=== PATIENT | female | born 1955 | race American Indian/Alaskan Native ===

== ENCOUNTER 2017-06-18 09:06 | Outpatient (CLI) | payer OTHER ==
--- NOTE | 2017-06-18 11:43 | Ultrasound Report ---
COMPLETE ABDOMINAL ULTRASOUND: 06/18/2017 CLINICAL INDICATION: Pain. TECHNIQUE: Real-time scanning was performed with used equipment sales representative static images obtained. FINDINGS: The liver measures 12.6 cm. Hepatic echotexture is normal. No intrahepatic biliary dilatation or focal parenchymal lesion is present. The common bile duct measures 4 mm. The gallbladder is normal, as is the pancreas. The right kidney measures 10.9 cm, and appears unremarkable. The left kidney measures 9.5 cm, and demonstrates an incidental 1 cm parapelvic cyst. The spleen measures 9.4 cm, and demonstrates normal echotexture. The abdominal aorta is normal in caliber. The inferior vena cava is unremarkable. No free fluid is present. IMPRESSION: NORMAL ABDOMINAL ULTRASOUND. JOB #: [id number] EXT JOB #: [id number]
== END 2017-06-18 09:07 | disposition home or self-care (01) ==
LOC: DI 09:06
PROVIDERS: ATTEND Registered Nurse
DX: R10.9 Unspecified abdominal pain (principal)
CPT/HCPCS: 76700

== ENCOUNTER 2017-06-23 10:17 | Outpatient (CLI) | payer OTHER ==
--- NOTE | 2017-06-23 12:33 | Ultrasound Report ---
PELVIC ULTRASOUND: 06/23/2017 CLINICAL INDICATION: Lower abdominal pain. TECHNIQUE: Transabdominal pelvic ultrasound performed for global evaluation. Transvaginal pelvic ultr asound performed for detailed evaluation. Real-time scanning performed and static images obtained. FINDINGS: The uterus is anteverted, measuring 6.0 x 4.1 x 2.4 cm. The endometrium measures 5 mm. An 1 cm calcified leiomyoma is noted in the right myometrium intramurally. The ovaries are normal, with the right measuring 2.0 x 0.8 x 0.8 cm, and the left measuring 1.3 x 0.7 x 0.7 cm. No free fluid is p resent. IMPRESSION: SMALL CALCIFIED LEIOMYOMA. JOB #: [id number] EXT JOB #:[id number]
== END 2017-06-23 10:18 | disposition home or self-care (01) ==
LOC: DI 10:17
PROVIDERS: ATTEND Registered Nurse
DX: D26.1 Other benign neoplasm of corpus uteri (principal)
CPT/HCPCS: 76830; 76856

== ENCOUNTER 2017-07-31 10:34 | Day surgery (SDC) | payer OTHER ==
[2017-07-31] MEDS ORDERED: LACTATED RINGERS 1,000 ML IV ONE (10:55)
[2017-07-31] MEDS ORDERED: MIDAZOLAM 2 MG/2 ML VIAL IVP ONE (12:00)
[2017-07-31] MEDS ORDERED: fentaNYL 100 MCG/2 ML VIAL IVP ONE (12:00)
--- NOTE | 2017-07-31 12:00 | HISTORY & PHYSICAL EXAMINATION ---
HPI - History of Present Illness HPI Comment/Other: Ptsyl is here for colonoscopy for hematochezia. Current Meds: DAILY VALUE MULTIVITAMIN ORAL TABS (MULTIPLE VITAMIN) Take one yablet by mouth daily Allergies: Past Medical History: Reviewed history from 09/25/2016 and no changes required: Very healthy Hyperlipidemia Hiatal Hernia Prednisone Use Past Surgical History: Reviewed history from 09/25/2016 and no changes required: Herniorophy Tonsilectomy Family History Summary: Reviewed history and no changes required: 06/17/2017 Father () - Has Family History of Heart Disease - Entered On: 06/17/2017 Social History: Reviewed history from 09/25/2016 and no changes required: Juanis Moved recently from [place] Enjoys V[employer] Systems Risk Factors: Smoked Tobacco Use: Former smoker Cigarettes: Yes Year quit: 1980 Years Since Last Quit: 37 Drug use: no Alcohol use: yes Type: wine Drinks per day: 2 Exercise: yes Times per week: daily Type of Exercise: swim, pilates, bicycling, paddling Physical Exam General: well developed, well nourished, in no acute distress Lungs: clear bilaterally to A & P Heart: regular rate and rhythm, S1, S2 without murmurs, rubs, gallops, or clicks Abdomen: bowel sounds positive; abdomen soft and non-tender without masses, organomegaly, or hernias noted. Bilateral inguinal incisional scars with no palpable hernia bilaterally Pulses: pulses normal in all 4 extremities Extremities: no clubbing, cyanosis, edema, or deformity noted with normal full range of motion of all joints Cervical Nodes: no significant adenopathy Psych: alert and cooperative; normal mood and affect; normal attention span and concentration Problems: Problems Added: 1) Dx of Hematochezia (AAR92-U67.1) (ICD-578.1) Impression & Recommendations: Problem # 1: hematochezia will proceed with colonoscopy. PMH/PSH - Past Medical History Cardiovascular: positive: None Respiratory: positive: None Endocrine/Autoimmune: positive: None GI: positive: None : positive: None HEENT: positive: None Psych: positive: None Musculoskeletal: positive: None Derm: positive: None MRSA Hx?: No - Past Surgical History HEENT: positive: Tonsil/Adenoidectomy Social & Family Hx - Social History ETOH Use: Wine Meds/Allgy - Home Medications Home Medications: Ambulatory Orders Medication Instructions Recorded Confirmed Multivitamin [Multiple Vitamins] 1 each PO DAILY 07/30/17 07/30/17 - Allergies Allergies/Adverse Reactions: Allergies Allergy/AdvReac Type Severity Reaction Status Date / Time No Known Drug Allergies Allergy Verified 07/30/17 14:44 Exam - Vital Signs Vital Signs: Vital Signs x48h Temp Pulse Resp BP Pulse Ox 07/31/17 10:38 36.2 C L 59 L 18 143/92 H 100
[2017-07-31 13:21] VITALS: BP 113/74
== END 2017-07-31 10:35 | disposition home or self-care (01) ==
LOC: SDS 10:34
PROVIDERS: ATTEND Surgery
PROC: 0DBE8ZX Excision of Large Intestine, Via Natural or Artificial Opening Endoscopic, Diagnostic (ICD-10-PCS; principal; 2017-07-31 11:45)
DX: K92.1 Melena (principal); K52.9 Noninfective gastroenteritis and colitis, unspecified; E78.5 Hyperlipidemia, unspecified; Z87.891 Personal history of nicotine dependence
CPT/HCPCS: 45380; J7120; 88305

== ENCOUNTER 2017-12-20 08:37 | Emergency (ER) | payer OTHER ==
--- NOTE | 2017-12-20 09:14 | ED Physician Documentation ---
PD HPI UPPER EXT INJURY - Stated complaint Stated Complaint: GLF/R SHOULDER INJ - Chief complaint Chief Complaint: Trauma Ext - History obtained from History obtained from: Patient - History of Present Illness Location: Right, Shoulder Type of injury: Fall Where injury occurred: Home Timing - onset: How many days ago (2) Timing - duration: Days (2) Timing - details: Abrupt onset, Still present Improved by: Rest, Ice, Immobilization Worsened by: Moving, Palpating Associated symptoms: No: Weakness, Numbness, Tingling, Swelling Contributing factors: No: Anticoagulated Similar symptoms before: Has not had sx before Recently seen: Not recently seen - Additonal information Additional information: 62-year-old female was training her dog she had the leash underneath her foot the dog ran it pulled her off of her feet and she landed on her right outstretched hand. Forces were transmitted into her shoulder and she has had pain in her shoulder since. She feels a step off at the end of her clavicle associated with this injury. She has mostly pain when she attempts to move her arm over her head. She also is having some issue with pain in her left ankle from a sprain that occurred about 1 month ago she continues to have symptoms is limping and would like an x-ray. Review of Systems Constitutional: denies: Fever Eyes: denies: Decreased vision Ears: denies: Ear pain Nose: denies: Congestion Throat: denies: Sore throat Cardiac: denies: Chest pain / pressure Respiratory: denies: Dyspnea, Cough GI: denies: Abdominal Pain, Nausea, Vomiting : denies: Dysuria Skin: denies: Rash Musculoskeletal: reports: Extremity pain, Joint pain, Pain with weight bearing. denies: Neck pain, Back pain Neurologic: denies: Generalized weakness, Focal weakness, Numbness PD PAST MEDICAL HISTORY - Past Medical History Past Medical History: Yes Cardiovascular: None Respiratory: None Neuro: None Endocrine/Autoimmune: None GI: Ulcerative colitis TRACK WATCHMAN: None : None HEENT: None Psych: None Musculoskeletal: None Derm: None - Past Surgical History Past Surgical History: Yes - Present Medications Home Medications: Ambulatory Orders Medication Instructions Recorded Confirmed Multivitamin [Multiple Vitamins] 1 each PO DAILY 07/30/17 07/30/17 - Allergies Allergies/Adverse Reactions: Allergies Allergy/AdvReac Type Severity Reaction Status Date / Time No Known Drug Allergies Allergy Verified 07/30/17 14:44 - Social History Does the pt smoke?: No Smoking Status: Never smoker Does the pt drink ETOH?: Yes ETOH Use: Wine Does the pt have substance abuse?: No PD ED PE NORMAL - Vitals Vital signs reviewed: Yes (normal ) - General General: Alert and oriented X 3, No acute distress, Well developed/nourished - HEENT HEENT: Atraumatic, PERRL, EOMI - Neck Neck: Supple, no meningeal sign - Respiratory Respiratory: No respiratory distress - Derm Derm: Normal color, Warm and dry, No rash - Extremities Extremities: No deformity, No edema, Other (There is point tenderness over the right A/C joint with minimal cosmetic deformity. The distal n/v is intact and the ROM is good with pain at extremes of ROM. The left ankle is examined and there is mild pain to palpation of the lateral malleolus. ) - Neuro Neuro: No motor deficit, No sensory deficit Eye Opening: Spontaneous Motor: Obeys Commands Verbal: Oriented GCS Score: 15 - Psych Psych: Normal mood, Normal affect Results - Vitals Vitals: Vital Signs - 24 hr 12/20/17 08:42 Temperature 36.2 C L Heart Rate 72 Respiratory 16 Rate O2 Saturation 98 Oxygen O2 Source Room air - Rads (name of study) ankle Radiology: Prelim report reviewed (Impression: 1. No osseous abnormality.), EMP read indepedently, See rad report shoulder Radiology: Prelim report reviewed (Impression: 1. No acute osseous abnormality. ), EMP read indepedently, See rad report PD MEDICAL DECISION MAKING - ED course Complexity details: reviewed old records, reviewed results, re-evaluated patient , considered differential, d/w patient ED course: 62-year-old female with a shoulder sprain and ankle sprain has negative x-rays this morning and treated conservatively per Departure - Departure Disposition: 01 Home, Self Care Clinical Impression: Shoulder sprain Qualifiers: Encounter type: initial encounter Shoulder sprain type: unspecified sprain Laterality: right Qualified Code(s): S43.401A - Unspecified sprain of right shoulder joint, initial encounter Ankle sprain Qualifiers: Encounter type: initial encounter Involved ligament of ankle: calcaneofibular ligament Laterality: left Qualified Code(s): S93.412A - Sprain of calcaneofibular ligament of left ankle, initial encounter Instructions: ED Sprain Ankle W X Ray, ED Sprain Shoulder Follow-Up: Luisana Valerio ARNP [Primary Care Provider] -
--- NOTE | 2017-12-20 10:13 | XRAY Preliminary Report ---
Exam: XR SHOULDER 3 VIEW RT IMPRESSION: 1. No acute osseous abnormality. [facility] SITE ID: [id number]
--- NOTE | 2017-12-20 10:13 | XRAY Report ---
EXAM: RIGHT SHOULDER RADIOGRAPHY EXAM DATE: 12/20/2017 09:59 AM. CLINICAL HISTORY: Fall shoulder pain deformity over A/C. COMPARISON: None. TECHNIQUE: 3 views. FINDINGS: Bones: No fractures or bone lesions. Bones appear osteopenic Joints: Mild acromioclavicular joint DJD. Glenohumeral joint appears preserved. Soft Tissues: Unremarkable. IMPRESSION: 1. No acute osseous abnormality. [facility] Referring Provider Line: [phone] SITE ID: [id number]
--- NOTE | 2017-12-20 10:14 | XRAY Preliminary Report ---
Exam: XR ANKLE 3 VIEW LT IMPRESSION: 1. No acute osseous abnormality. If there is clinical concern for radiographically occult fracture, consider immobilization with repea t radiograph in 7-10 days. [facility] SITE ID: [id number]
--- NOTE | 2017-12-20 10:15 | XRAY Report ---
EXAM: LEFT ANKLE RADIOGRAPHY EXAM DATE: 12/20/2017 09:57 AM. CLINICAL HISTORY: Sprain one month ago continued limping. . COMPARISON: None. TECHNIQUE: 3 views. FINDINGS: Bones: No fractures or bone lesions. Joints: Unremarkable. Soft Tissues: Unremarkable. IMPRESSION: 1. No acute osseous abnormality. If there is clinical concern for radiographically occult fracture, consider immobilization with repea t radiograph in 7-10 days. [facility] Referring Provider Line: [phone] SITE ID: [id number]
[2017-12-20 11:55] VITALS: BP 154/80
== END 2017-12-20 11:59 | disposition home or self-care (01) ==
LOC: ED 08:37
DX: S43.401A Unspecified sprain of right shoulder joint, initial encounter (principal); W01.0XXA Fall on same level from slipping, tripping and stumbling without subsequent striking against object, initial encounter; Y93.K1 Activity, walking an animal; Y92.019 Unspecified place in single-family (private) house as the place of occurrence of the external cause; S93.412A Sprain of calcaneofibular ligament of left ankle, initial encounter
CPT/HCPCS: 99283

== ENCOUNTER 2019-03-17 09:58 | Outpatient (CLI) | payer OTHER ==
--- NOTE | 2019-03-17 11:21 | Mammography Report ---
Reason: SCREENING MAMMO Procedure Date: 03/17/2019 Accession Number: [id number] / [id number] Procedure: ANGEL - Screening Mammo w/Vaibhav CPT Code: FULL RESULT: EXAM: Screening Mammo w/Vaibhav DATE: 03/17/2019 10:24 AM CLINICAL HISTORY: Routine screening TECHNIQUE: (B) - Bilateral CC and MLO views were obtained. COMPARISON: 10/14/2016, 03/27/2016, 08/05/2011 PARENCHYMAL PATTERN: (D) - The breasts demonstrate heterogeneously dense fibroglandular parenchyma bilaterally. FINDINGS: There is no significant interval change. There are no suspicious masses, calcifications, or areas of distortion. Stable coarse benign right upper outer quadrant calcifications. IMPRESSION: Benign findings. BI-RADS category 2. RECOMMENDATION: (ANNUAL) - Recommend routine annual screening mammography. BI-RADS CATEGORY: (2) - Benign Findings. STANDARD QUALIFYING STATEMENTS: 1. This examination was not reviewed with the aid of Computer-Aided Detection (CAD). 2. A negative or benign imaging report should not preclude biopsy if clinically suspicious findings are present. 3. Dense breasts may obscure an underlying neoplasm. 4. This examination was reviewed with the aid of 3D breast imaging (tomosynthesis).
== END 2019-03-17 09:59 | disposition home or self-care (01) ==
LOC: DI 09:58
PROVIDERS: ATTEND Registered Nurse
DX: Z12.31 Encounter for screening mammogram for malignant neoplasm of breast (principal)
CPT/HCPCS: 77063; 77067

== ENCOUNTER 2021-03-08 08:17 | Outpatient (CLI) | payer MEDICARE, OTHER ==
--- NOTE | 2021-03-08 14:33 | DEXA Report ---
PROCEDURE: Dexa Spine and/or Hip INDICATIONS: POSTMENOPAUSAL TECHNIQUE: Dual energy x-ray absorptiometry (DXA) was performed on a [employer] System. Regions measur ed are the AP Spine, femoral neck, and if needed forearm. COMPARISON: None. FINDINGS: Lumbar Spine: Bone Mineral Density 0.912 g/cm/cm,T score -2.2, osteopenia Left Hip: Bone Mineral Density 0.844 g/cm/cm,T score -1.3, osteopenia Left Femoral Neck: Bone Mineral Density 0.796 g/cm/cm, T score -1.7, osteopenia (T score greater or equal to -1.0: NORMAL) (T score from -1.1 to -2.4: OSTEOPENIA) (T score less than or equal to -2.5 to: OSTEOPOROSIS) Impression: Osteopenia at the lumbosacral spine overall and the left hip. Targeted imaging of the fem oral neck shows osteopenia in that area also. Patients with diagnosis of osteoporosis or osteopenia should have regular bone mineral density assess ment. For those eligible for Medicare, routine testing is allowed once every 2 years. Testing frequ ency can be increased for patients who have rapidly progressing disease or for those who are receivin g medical therapy to restore bone mass. Reviewed by: Minor Valle MD on 03/08/2021 2:32 PM PDT Approved by: Minor Valle MD on 03/08/2021 2:32 PM PDT Station ID: [id number]
== END 2021-03-08 08:18 | disposition home or self-care (01) ==
LOC: DI 08:17
PROVIDERS: ATTEND Registered Nurse
DX: M85.89 Other specified disorders of bone density and structure, multiple sites (principal)

== ENCOUNTER 2021-03-08 08:19 | Outpatient (CLI) | payer MEDICARE, OTHER ==
--- NOTE | 2021-03-09 09:38 | Mammography Report ---
BILATERAL DIGITAL SCREENING MAMMOGRAM 3D/2D: 03/08/2021 CLINICAL: Routine screening. Comparison is made to exams dated: 03/17/2019 mammogram, 10/14/2016 mammogram - [facility], 03/27/2015 mammogram, and 08/05/2011 mammogram - [facility]. The tissue of both breasts is predominantly fatty. There is a stable benign focal asymmetry in the left breast medially posterior depth. No significant masses, calcifications, or other findings are seen in either breast. There has been no significant interval change. IMPRESSION: BENIGN There is no mammographic evidence of malignancy. A 1 year screening mammogram is recommended. This exam was interpreted at Station ID: [id number]. NOTE: For mammograms, a report in lay terms will be sent to the patient. Approximately 15% of breast malignancies will not be visualized mammographically. In the management of a palpable breast mass, a negative mammogram must not discourage biopsy of a clinically suspicious lesion. Electronically Signed By: Michael Martin acr/:03/08/2021 09:58:59 ACR BI-RADS Category 2: Benign Finding(s) 3342F PARENCHYMAL PATTERN: (F) - The breast(s) demonstrate(s) diffuse fatty replacement. BI-RADS CATEGORY: (2) - 2 RECOMMENDATION: (ANNUAL) - Recommend routine annual screening mammography. [id number] 1 year screening LATERALITY: (B)
== END 2021-03-08 08:20 | disposition home or self-care (01) ==
LOC: DI 08:19
PROVIDERS: ATTEND Registered Nurse
DX: Z12.31 Encounter for screening mammogram for malignant neoplasm of breast (principal)

== ENCOUNTER 2022-03-11 10:49 | Outpatient (CLI) | payer MEDICARE, OTHER ==
--- NOTE | 2022-03-11 16:59 | XRAY Report ---
PROCEDURE: Hip w/Pelvis 2-3V RT INDICATIONS: PAIN IN RIGHT HIP TECHNIQUE: AP pelvis with lateral view(s) of the right hip(s). COMPARISON: None. FINDINGS: Bones: No fractures or dislocations. Pelvic ring appears intact. No suspicious bony lesions. Mild right hip osseous hypertrophy compatible with osteoarthritis. Soft tissues: The visualized bowel gas pattern is normal. No suspicious soft tissue calcifications. IMPRESSION: Mild right hip osteoarthritis. Reviewed by: Kajal Peralta MD, PhD on 03/11/2022 4:58 PM PDT Approved by: Kajal Peralta MD, PhD on 03/11/2022 4:58 PM PDT Station ID: [id number]
== END 2022-03-11 10:50 | disposition home or self-care (01) ==
LOC: DI.S 10:49
PROVIDERS: ATTEND Registered Nurse
DX: M16.11 Unilateral primary osteoarthritis, right hip (principal)

== ENCOUNTER 2023-04-30 08:49 | Outpatient (CLI) | payer MEDICARE, OTHER ==
--- NOTE | 2023-05-01 12:20 | Mammography Report ---
BILATERAL DIGITAL SCREENING MAMMOGRAM 3D/2D: 04/30/2023 CLINICAL: Routine screening. Comparison is made to exams dated: 03/08/2021 mammogram, 03/17/2019 mammogram, 10/14/2016 mammogram - [facility], and 03/27/2015 mammogram - [facility]. Both breasts are heterogeneously dense, which may obscure small masses (category c / 51-75% glandular tissue). There is a stable benign focal asymmetry in the left breast. There also are benign calcifications in the right breast. No significant masses, calcifications, or other findings are seen in either breast. There has been no significant interval change. IMPRESSION: BENIGN There is no mammographic evidence of malignancy. A 1 year screening mammogram is recommended. Based on the Tyrer Cuzick model (a risk assessment model) the patients lifetime risk is 13.5% and he r 10 year risk is 7.6%. According to the ACR, ACS, and NCCN guidelines, an annual breast MRI exam ramiro ng with mammogram is recommended if the patients lifetime risk is 20% or greater. This exam was interpreted at Station ID: [id number]. NOTE: For mammograms, a report in lay terms will be sent to the patient. Approximately 15% of breast malignancies will not be visualized mammographically. In the management of a palpable breast mass, a negative mammogram must not discourage biopsy of a clinically suspicious lesion. Electronically Signed By: Jonas fall/tino:04/30/2023 17:27:46 letter sent: No_Letter ACR BI-RADS Category 2: Benign Finding(s) 3342F PARENCHYMAL PATTERN: (D) - The breast(s) demonstrate(s) heterogeneously dense fibroglandular parherberthy ma. BI-RADS CATEGORY: (2) - 2 Mammogram [id number] 1 year screening LATERALITY: (B)
== END 2023-04-30 08:50 | disposition home or self-care (01) ==
LOC: DI 08:49
PROVIDERS: ATTEND Registered Nurse
DX: Z12.31 Encounter for screening mammogram for malignant neoplasm of breast (principal)

== ENCOUNTER 2023-04-30 08:49 | Outpatient (CLI) | payer MEDICARE, OTHER ==
--- NOTE | 2023-04-30 13:15 | DEXA Report ---
PROCEDURE: Dexa Spine and/or Hip INDICATIONS: OSTEOPENIA TECHNIQUE: Dual energy x-ray absorptiometry (DXA) was performed on a [employer] System. Regions measur ed are the AP Spine, femoral neck, and if needed forearm. COMPARISON: DEXA 03/08/2021 FINDINGS: Lumbar Spine: Bone Mineral Density 1.044 g/cm/cm, T score -1.1. Osteopenia. Increase. Left Femoral Neck: Bone Mineral Density 0.767 g/cm/cm, T score -2.0. Osteopenia. Decreased. Left Hip: Bone Mineral Density 0.858 g/cm/cm, T score -1.2. Osteopenia. No significant change. (T score greater or equal to -1.0: NORMAL) (T score from -1.1 to -2.4: OSTEOPENIA) (T score less than or equal to -2.5 to: OSTEOPOROSIS) Impression: By WHO criteria, this patient has low bone density (osteopenia). Patients with diagnosis of osteoporosis or osteopenia should have regular bone mineral density assess ment. For those eligible for Medicare, routine testing is allowed once every 2 years. Testing frequ ency can be increased for patients who have rapidly progressing disease or for those who are receivin g medical therapy to restore bone mass. Reviewed by: Telly Hamilton MD on 04/30/2023 1:14 PM PDT Approved by: Telly Hamilton MD on 04/30/2023 1:14 PM PDT Station ID: [id number]
== END 2023-04-30 08:50 | disposition home or self-care (01) ==
LOC: DI 08:49
PROVIDERS: ATTEND Registered Nurse
DX: M85.89 Other specified disorders of bone density and structure, multiple sites (principal)

== ENCOUNTER 2023-05-05 10:13 | Outpatient (CLI) | payer MEDICARE, OTHER ==
--- NOTE | 2023-05-05 15:06 | MRI Report ---
PROCEDURE: SHOULDER WO - RT INDICATIONS: RIGHT SHOULDER PAIN TECHNIQUE: Noncontrast oblique coronal T2 fast spin echo with fat saturation, oblique sagittal T1 spin echo and T2 fast spin echo with fat saturation, axial T1 spin echo and T2 fast spin echo with fat saturation t hrough the shoulder. COMPARISON: None. FINDINGS: Image quality: Excellent. Rotator cuff: There is full-thickness rupture involving anterior fibers of distal supraspinatus at it s insertion on humeral head with up to 2.2 cm medial retraction of torn tendon fibers to the level of acromium and fluid-filled gap measures 1.6 cm in AP dimension. Moderate grade articular surface part ial-thickness tear involving mid to posterior fibers of distal supraspinatus and infraspinatus is see n extending to musculotendinous junction. Low-grade intrasubstance partial thickness tear involving d istal subscapularis is also seen. Mild to moderate supraspinatus muscle atrophy is noted on sagittal images. Bones and bursae: No bone marrow contusions or fractures. Moderate acromioclavicular joint osteoarth ritic changes are seen with joint space narrowing and downward osteophyte formation depressing on mus culotendinous junction of supraspinatus. Mild to moderate glenohumeral joint osteoarthritic changes a lso noted with joint space narrowing, subchondral sclerosis and subcortical cystic changes. Small to moderate amount of subacromial subdeltoid bursal fluid is seen, no gross loose bodies. Capsule and soft tissues: There is fraying of superior anterior labrum with signal abnormality at 12 to 1:00 position concerning for superior anterior labral tear. Similar signal abnormality and contour irregularity involving anterior inferior labrum at 4 to 5:00 position is also seen. The long head of the biceps tendon demonstrates normal location and morphology. The rotator interval appears normal, without fibrosis. The coracohumeral ligament is normal in thickness. IMPRESSION: 1. Full-thickness rupture involving anterior fibers of distal supraspinatus at its insertion on humer al head with up to 2.2 cm medial retraction of torn tendon fibers to the level of acromion. Moderate grade articular surface partial-thickness tear involving mid to posterior fibers of distal supraspina tus and infraspinatus extending to musculotendinous junction. Low-grade intrasubstance partial thickn ess tear involving distal subscapularis. Mild to moderate supraspinatus muscle atrophy. 2. Moderate acromioclavicular joint and glenohumeral joint osteoarthritis. No fracture or dislocation . Small to moderate amount of subacromial subdeltoid bursal fluid. No gross loose bodies. 3. Suggestion of superior anterior labral tear at 12 to 1:00 position and anterior inferior labral te ar at 4 to 5:00 position. Reviewed by: Elmer Roque MD on 05/05/2023 3:04 PM PDT Approved by: Elmer Roque MD on 05/05/2023 3:04 PM PDT Station ID: [id number]
== END 2023-05-05 10:14 | disposition home or self-care (01) ==
LOC: DI 10:13
PROVIDERS: ATTEND Orthopaedic Surgery
DX: M75.121 Complete rotator cuff tear or rupture of right shoulder, not specified as traumatic (principal); M62.511 Muscle wasting and atrophy, not elsewhere classified, right shoulder; M19.011 Primary osteoarthritis, right shoulder